=== PATIENT | female | born 1995 | race Caucasian/White ===

== ENCOUNTER → 2016-12-16 | Outpatient (REF) | LOC: ZLAB.WCH 09:07 | DX: Z01.89 Encounter for other specified special examinations (principal) ==

== ENCOUNTER → 2021-07-21 | Outpatient (CLI) | payer BC | LOC: ZCOL.LAB 17:54 | DX: J32.4 Chronic pansinusitis (principal) ==

== ENCOUNTER 2021-08-15 23:13 | Emergency (ER) | payer BC ==
[~2021-08-15] VITALS: Ht 170.2 cm; Wt 111.4 kg
[2021-08-15 23:20] VITALS: TEMP 98.5
[2021-08-16 00:31] LABS: MEAN CELL VOLUME 87 fl (80.0-100.0); MEAN CORPUSCULAR HEMOGLOBIN 29 pg (27-31); MEAN CORPUSCULAR HGB CONC 33 g/dl (33.0-37.0); MEAN PLATELET VOLUME 10.2 fl (7.4-10.4); PLATELET COUNT 83 K/mm3 (130-400); RED BLOOD COUNT 3.47 M/mm3 (4.10-5.30); REDCELL DISTRIBUTION WIDTH-CV 14.9 % (11.5-14.5)
[2021-08-16 00:32] LABS: HEMATOCRIT 30.1 % (37.0-47.0)
[2021-08-16 00:40] LABS: ALBUMIN 3.4 gm/dL (3.5-5.0); BILIRUBIN,TOTAL 0.9 mg/dL (0.2-1.2); CALCIUM 8.7 mg/dL (8.4-10.2); CREATININE, serum 0.89 mg/dL (0.57-1.11); POTASSIUM 3.5 mmol/L (3.5-4.5); TOTAL PROTEIN 6.4 gm/dL (6.2-8.1)
[2021-08-16 00:48] LABS: BAND 10 % (0-10); LYMPHOCYTE 6 % (20.0-51.0); METAMYELOCYTE 1 % (0-0); NEUTROPHILS 76 % (42.0-75.2)
[2021-08-16 00:49] LABS: PLATELET ESTIMATE NORMAL (NORMAL)
[2021-08-16] MEDS ORDERED: BENTYL 20MG20 MG/TAB PO (03:03)
[2021-08-16] MEDS ORDERED: REGLAN 10MG10 MG/TAB PO (03:03)
[2021-08-16 03:18] VITALS: BP 93/64; PULSE 74
== END 2021-08-16 03:18 | disposition home or self-care (01) ==
LOC: COL.ER 23:13
PROVIDERS: Emergency Medicine
DX: K80.50 Calculus of bile duct without cholangitis or cholecystitis without obstruction (principal); D72.819 Decreased white blood cell count, unspecified; Z28.310 Unvaccinated for COVID-19; Z87.19 Personal history of other diseases of the digestive system
CPT/HCPCS: C9113; J2270; J2765; J7120; Q9967

== ENCOUNTER 2021-09-30 12:35 | Day surgery (SDC) | payer BC ==
[2021-09-30] VITALS (7 sets, daily range): BP systolic 101–124; BP diastolic 59–65; PULSE 64–75; TEMP 97.9–98.2
[~2021-09-30] VITALS: Ht 170.2 cm; Wt 109.7 kg
[~2021-09-30 12:35] MED LIST: BENTYL 20MG20 MG/TAB PO; REGLAN 10MG10 MG/TAB PO
[2021-09-30] MEDS ORDERED: KEPPRA 500MG500 MG PO ×2 (12:42→13:33)
[2021-09-30] MEDS ORDERED: DESYREL 50MG50 MG PO ×2 (12:42→13:33)
[2021-09-30] MEDS ORDERED: INDERAL 20MG20 MG PO (12:43)
[2021-09-30] MEDS ORDERED: ZOFRAN ODT4 MG PO (12:44)
[2021-09-30] MEDS ORDERED: FLONASEALLERGY NS (13:28)
[2021-09-30] MEDS ORDERED: PROTONIX 40MG T40 MG PO (13:28)
[2021-09-30] MEDS ORDERED: MASON NATURAL2000 IU PO (13:29)
[2021-09-30] MEDS ORDERED: SYNTHROID0.1 MG/TAB PO (13:30)
[2021-09-30] MEDS ORDERED: PROBIOTIC BLEN1 EACH PO (13:31)
[2021-09-30] MEDS ORDERED: PREDNISONE 5MG5 MG PO (13:31)
[2021-09-30] MEDS ORDERED: LEXAPRO 10MG10 MG PO (13:32)
[2021-09-30] MEDS ORDERED: IMURAN 50MG TAB50 MG PO (13:32)
[2021-09-30] MEDS ORDERED: PLAQUENIL 200M200 MG PO (13:33)
[2021-09-30] MEDS ORDERED: TEMODAR5 MG PO (13:34)
[2021-09-30] MEDS ORDERED: ANIMAL SHAPES1 CT2 PO (13:35)
[2021-09-30] MEDS ORDERED: VITAMIN C500 MG PO (13:35)
[2021-09-30] MEDS ORDERED: ZANAFLEX2 MG PO (13:36)
[2021-09-30] MEDS ORDERED: REGLAN 10MG10 MG/TAB PO (13:36)
[2021-09-30] MEDS ORDERED: BENTYL 20MG20 MG/TAB PO (13:37)
[2021-09-30] MEDS ORDERED: ROXICODONE 55 MG/TAB PO (13:46)
--- NOTE | 2021-09-30 18:13 | NUR ---
1600: Patient arrived back into bay [facility] from PACU. Patient is alert and oriented. Vital signs stable. Report received from Luis A Jackson Patient requesting apple juice and jello. Patient rating pain 3-4/10 to back and epigastric region. Denies nausea. Call light left within reach. 1615: Patient vitally stable. Tolerating food and drink well. Rating pain 5/10 to incisional areas, PRN pain medication given per MAR. 1645: Patient up to restroom with stand by assist. States pain is 1/10 to incisional area. Denies nausea. Patient states she would like to rest. 1730: Patient continues to do well. Denies nausea. Rating pain 1-2/10. 1755: Patient meets discharge criteria. IV removed without complications. Went through discharge instructions with patient and . Patient got dressed. Escorted to emergency department entrance via wheelchair. Patient got into personal vehicle unassisted and left in the care of her .
== END 2021-09-30 18:10 | disposition home or self-care (01) ==
LOC: SDCO 12:35
DX: K80.10 Calculus of gallbladder with chronic cholecystitis without obstruction (principal); C71.9 Malignant neoplasm of brain, unspecified; Z79.52 Long term (current) use of systemic steroids; Z79.899 Other long term (current) drug therapy; Z79.51 Long term (current) use of inhaled steroids; Z28.310 Unvaccinated for COVID-19; Z28.9 Immunization not carried out for unspecified reason
CPT/HCPCS: J0690; J1100; J1170; J1885; J2405; J2704; J3010; J7120

== ENCOUNTER 2021-10-05 13:15 | Inpatient (IN) | payer BC ==
[~2021-10-05] VITALS: Ht 170.2 cm; Wt 109.1 kg
[~2021-10-05 13:15] MED LIST changes: +ANIMAL SHAPES1 CT2 PO; +DESYREL 50MG50 MG PO; +FLONASEALLERGY NS; +IMURAN 50MG TAB50 MG PO; +INDERAL 20MG20 MG PO; +KEPPRA 500MG500 MG PO; +LEXAPRO 10MG10 MG PO; +MASON NATURAL2000 IU PO; +PLAQUENIL 200M200 MG PO; +PREDNISONE 5MG5 MG PO; +PROBIOTIC BLEN1 EACH PO; +PROTONIX 40MG T40 MG PO; +ROXICODONE 55 MG/TAB PO; +SYNTHROID0.1 MG/TAB PO; +TEMODAR5 MG PO; +VITAMIN C500 MG PO; +ZANAFLEX2 MG PO; +ZOFRAN ODT4 MG PO
[2021-10-05 15:02] LABS: BASO % 0.3 % (0.0-2.0); EOS % 0.6 % (0.0-4.0); GRAN # 2.8 K/mm3 (1.4-6.5); GRAN % 85.8 % (42.2-75.2); HEMOGLOBIN 10.3 g/dl (12.5-16.0); LYMPH # 0.1 K/mm3 (1.2-3.4); LYMPH % 3.1 % (20.0-51.0); MEAN CELL VOLUME 87 fl (80.0-100.0); MEAN CORPUSCULAR HEMOGLOBIN 29 pg (27-31); MEAN CORPUSCULAR HGB CONC 33 g/dl (33.0-37.0); MEAN PLATELET VOLUME 10.3 fl (7.4-10.4); MONO # 0.3 K/mm3 (0.1-0.6); PLATELET COUNT 137 K/mm3 (130-400); RED BLOOD COUNT 3.58 M/mm3 (4.10-5.30); REDCELL DISTRIBUTION WIDTH-CV 14.3 % (11.5-14.5)
[2021-10-05 15:08] LABS: HEMATOCRIT 31.3 % (37.0-47.0)
[2021-10-05 15:15] LABS: ALBUMIN 3.6 gm/dL (3.5-5.0); BILIRUBIN,TOTAL 1.5 mg/dL (0.2-1.2); CALCIUM 9.1 mg/dL (8.4-10.2); CREATININE, serum 0.71 mg/dL (0.57-1.11); POTASSIUM 3.6 mmol/L (3.5-4.5); TOTAL PROTEIN 6.7 gm/dL (6.2-8.1)
[2021-10-05 17:51] VITALS: BP 123/67; PULSE 55; TEMP 98.4
[2021-10-05] MEDS ORDERED: ZOFRAN8 MG PO (18:13)
[2021-10-05] MEDS ORDERED: TYLENOL 500MG500 MG PO (18:17)
[2021-10-05] MEDS ORDERED: ALEVE 220MG220 MG PO (18:19)
[2021-10-05] MEDS ORDERED: FLEXERIL5 MG PO (18:20)
[2021-10-05 18:31] VITALS: BP 123/67; PULSE 55; TEMP 98.4
--- NOTE | 2021-10-05 19:08 | NUR ---
PT UP TO FLOOR FROM ER AT 1745. PT STATES THAT SHE IS NOT HAVING ANY ABD PAIN AT THIS TIME. "I WAS EARLIER BUT I FEEL OK NOW." PT STATES THAT SHE IS ON CHEMO BUT HAS NOT HAD IT FOR ABOUT 2 MONTHS NOW. PT STATES THAT SHE WOULD LIKE TO HAVE SOME WATER. ITEMS WERE GIVEN TO PT. PT STATES NO OTHER COCNERNS/NEEDS AT THIS TIME. CALL LIGHT IS WITHIN REACH.
[2021-10-05 19:40] VITALS: BP 129/79; PULSE 41; TEMP 97.8
[2021-10-05 23:51] VITALS: BP 109/66; PULSE 42; TEMP 97.9
[2021-10-06 03:43] VITALS: BP 121/80; PULSE 46; TEMP 97.8
[2021-10-06 06:34] LABS: MEAN CELL VOLUME 90 fl (80.0-100.0); MEAN CORPUSCULAR HGB CONC 32 g/dl (33.0-37.0); MEAN PLATELET VOLUME 10.9 fl (7.4-10.4); PLATELET COUNT 93 K/mm3 (130-400); RED BLOOD COUNT 3.18 M/mm3 (4.10-5.30); REDCELL DISTRIBUTION WIDTH-CV 14.3 % (11.5-14.5)
[2021-10-06 06:52] LABS: HEMATOCRIT 28.5 % (37.0-47.0); HEMOGLOBIN 9.2 g/dl (12.5-16.0); MEAN CORPUSCULAR HEMOGLOBIN 29 pg (27-31)
--- NOTE | 2021-10-06 07:00 | NUR ---
Pt had uneventful night. Some nausea, Zofran given per MAR. Pt's IV in the left hand was painful and swollen at insertion site. Started new IV in the left forearm, 20g. Patient denies any pain from that site. Fluids running. Pt assesment completed. No other concerns. Report given to LORENZA Hung.
[2021-10-06 07:06] VITALS: BP 100/58; PULSE 52; TEMP 98
[2021-10-06 07:17] LABS: ALBUMIN 3.1 gm/dL (3.5-5.0); BILIRUBIN,TOTAL 1.7 mg/dL (0.2-1.2); CALCIUM 8.6 mg/dL (8.4-10.2); CREATININE, serum 0.68 mg/dL (0.57-1.11); TOTAL PROTEIN 5.8 gm/dL (6.2-8.1)
[2021-10-06 07:33] LABS: BAND 4 % (0-10); EOSINOPHIL 2 % (0-4); LYMPHOCYTE 8 % (20.0-51.0); NEUTROPHILS 80 % (42.0-75.2); PLATELET ESTIMATE DECREASED (NORMAL)
[2021-10-06 07:34] LABS: ANISOCYTOSIS 1+; HYPOCHROMIA 1+
--- NOTE | 2021-10-06 10:25 | NUR ---
Initial visit; Patient was receptive to prayer for her ill health. 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
[2021-10-06 11:20] VITALS: BP 115/73; PULSE 66; TEMP 98.1
[2021-10-06 15:27] VITALS: BP 120/78; PULSE 56; TEMP 98.2
[2021-10-06 19:43] VITALS: BP 110/61; PULSE 49; TEMP 97.9
[2021-10-06 23:44] VITALS: BP 117/72; PULSE 64; TEMP 97.9
[2021-10-07 03:53] VITALS: BP 112/62; PULSE 68; TEMP 98.2
[2021-10-07 06:33] LABS: BASO % 0.3 % (0.0-2.0); GRAN # 2.4 K/mm3 (1.4-6.5); GRAN % 80.3 % (42.2-75.2); LYMPH # 0.2 K/mm3 (1.2-3.4); LYMPH % 6.5 % (20.0-51.0); MEAN CELL VOLUME 91 fl (80.0-100.0); MEAN CORPUSCULAR HGB CONC 32 g/dl (33.0-37.0); MONO # 0.3 K/mm3 (0.1-0.6); MONO % 10.5 % (1.7-9.3); PLATELET COUNT 126 K/mm3 (130-400); RED BLOOD COUNT 3.17 M/mm3 (4.10-5.30); REDCELL DISTRIBUTION WIDTH-CV 14.5 % (11.5-14.5)
[2021-10-07 06:41] LABS: HEMATOCRIT 28.9 % (37.0-47.0); HEMOGLOBIN 9.2 g/dl (12.5-16.0); MEAN CORPUSCULAR HEMOGLOBIN 29 pg (27-31)
[2021-10-07 06:52] LABS: ALBUMIN 3.1 gm/dL (3.5-5.0); BILIRUBIN,TOTAL 1.5 mg/dL (0.2-1.2); CALCIUM 8.9 mg/dL (8.4-10.2); CREATININE, serum 0.74 mg/dL (0.57-1.11); POTASSIUM 3.8 mmol/L (3.5-4.5); TOTAL PROTEIN 5.8 gm/dL (6.2-8.1)
--- NOTE | 2021-10-07 07:15 | NUR ---
THIS PATIENT HAD A DIFFICULT NIGHT WITH PAIN AND NAUSEA. THE PATIENT DID RECEIVE TWO DOSES OF DILAUDID BACK TO BACK PER THE MAR PROTOCOL. THE PATIENT IS COMPLAINING OF PAIN DIRECTLY BELOW THE XYPHOID PROCESS. THE ABD CT SCAN DOES SHOW SOME TRACE BILATERAL PLEURAL EFFUSIONS WELL A MASS IN THE LEFT BREAST THAT WAS DISCUSSED WITH ANDRE HOPKINS THIS MORNING. REPORT GIVEN TO LORENZA TREVINO. NO OTHER CONCERNS.
[2021-10-07 08:01] VITALS: BP 117/85; PULSE 58; TEMP 97.8
[2021-10-07 11:20] VITALS: BP 103/51; PULSE 60; TEMP 98.1
--- NOTE | 2021-10-07 13:51 | NUR ---
Cafeteria Monitor met with patient to discuss discharge planning. Patient lives in [place] with her , Zay (ph#[phone]) and their two sons, ages 3 and 1[address] Lagunas for primary care and follows at [facility] for oncology. Patient had surgery for brain cancer in March and has had chemotherapy. Patient states she was just recently cleared to drive again as she could not drive after her brain surgery. Patient is employed by [employer] and is independent with [employer]. Patient does not use any DME. Patient was interested in completing [facility]. Patient chose to designate her , Zay and her mother, Quyen (ph#[phone]). SW provided original and copies to patient then placed copy in patient's chart. Patient plans to return home at time of discharge. Discharge Plan: Home
[2021-10-07 15:34] VITALS: BP 111/61; PULSE 67; TEMP 97.6
[2021-10-07 19:13] VITALS: BP 110/56; PULSE 56; TEMP 97
[2021-10-08 03:46] VITALS: BP 106/59; PULSE 66; TEMP 98.2
[2021-10-08 06:49] LABS: HEMOGLOBIN 10.2 g/dl (12.5-16.0); MEAN CELL VOLUME 90 fl (80.0-100.0); MEAN CORPUSCULAR HEMOGLOBIN 29 pg (27-31); MEAN CORPUSCULAR HGB CONC 32 g/dl (33.0-37.0); MEAN PLATELET VOLUME 11.5 fl (7.4-10.4); PLATELET COUNT 100 K/mm3 (130-400); RED BLOOD COUNT 3.51 M/mm3 (4.10-5.30); REDCELL DISTRIBUTION WIDTH-CV 14.9 % (11.5-14.5)
[2021-10-08 06:52] LABS: CALCIUM 9.1 mg/dL (8.4-10.2); CREATININE, serum 0.79 mg/dL (0.57-1.11); POTASSIUM 3.6 mmol/L (3.5-4.5)
[2021-10-08 07:29] LABS: HEMATOCRIT 31.7 % (37.0-47.0)
[2021-10-08 07:40] LABS: BAND 4 % (0-10); EOSINOPHIL 2 % (0-4); LYMPHOCYTE 10 % (20.0-51.0); METAMYELOCYTE 1 % (0-0); NEUTROPHILS 78 % (42.0-75.2); PLATELET ESTIMATE DECREASED (NORMAL)
[2021-10-08 08:32] VITALS: BP 110/60; PULSE 62; TEMP 98.4
--- NOTE | 2021-10-08 09:27 | NUR ---
PT RESTING IN BED AT THIS TIME. MORNING MEDICATIONS GIVEN. SHIFT ASSESSMENT COMPLETED. PT TOLERATING CLEAR LIQUIDS AFTER NAUSEOUS EPISODE THIS AM. WILL BE NPO AT 1100 FOR EGD THIS AFTERNOON. PT REPORTING EPIGASTRIC PAIN. DENIES ANY NEEDS. WILL CONTINUE TO MONITOR.
[2021-10-08 12:00] VITALS: BP 110/60; PULSE 62; TEMP 98.1
[2021-10-08 15:53] VITALS: BP 109/53; PULSE 59
[2021-10-08 20:39] VITALS: BP 124/64; PULSE 69; TEMP 98.2
--- NOTE | 2021-10-08 22:00 | NUR ---
PT EMILIE IN BED RESTING QUIETLY WATCHING TV. PT REPORTS THAT PAIN IS NOW CONTROLLED WITH MEDICATION.
[2021-10-09] VITALS (7 sets, daily range): BP systolic 93–118; BP diastolic 34–66; PULSE 65–84; TEMP 97.5–99
[2021-10-09 06:23] LABS: HEMOGLOBIN 10.5 g/dl (12.5-16.0); MEAN CELL VOLUME 90 fl (80.0-100.0); MEAN CORPUSCULAR HEMOGLOBIN 29 pg (27-31); MEAN CORPUSCULAR HGB CONC 32 g/dl (33.0-37.0); MEAN PLATELET VOLUME 10.8 fl (7.4-10.4); PLATELET COUNT 165 K/mm3 (130-400); RED BLOOD COUNT 3.66 M/mm3 (4.10-5.30); REDCELL DISTRIBUTION WIDTH-CV 14.6 % (11.5-14.5)
[2021-10-09 06:43] LABS: CALCIUM 9.2 mg/dL (8.4-10.2); CREATININE, serum 0.78 mg/dL (0.57-1.11)
[2021-10-09 06:49] LABS: HEMATOCRIT 33.1 % (37.0-47.0)
[2021-10-09 08:33] LABS: BAND 7 % (0-10); BASOPHIL 1 % (0-2); LYMPHOCYTE 6 % (20.0-51.0); NEUTROPHILS 80 % (42.0-75.2); PLATELET ESTIMATE NORMAL (NORMAL)
--- NOTE | 2021-10-09 09:56 | NUR ---
PT RESTING IN BED. MORNING MEDICATIONS GIVEN. SHIFT ASSESSMENT COMPLETED. PT REPORT PAIN TO BACK THAT RADIATES TO THE CHEST AND EPIGASTRIC AREA, MEDICATION GIVEN PER eMAR. DENIES ANY OTHER NEEDS AT THIS TIME. WILL CONTINUE TO MONITOR.
[2021-10-10 00:21] VITALS: BP 102/63; PULSE 72; TEMP 97.6
[2021-10-10 04:19] VITALS: BP 102/56; PULSE 55; TEMP 98.1
--- NOTE | 2021-10-10 05:40 | NUR ---
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 PT SITTING UP IN BED TALKING TO HER SPOUSE ON THE PHONE. PT HAD SOME MILD EPIGASTRIC PAIN. PT GIVEN SCHEDULED TYLENOL FOR PAIN. PT FELT THE TYLENOL WAS EFFECTIVE. PT DENIED CHEST PAIN, PALPITATIONS, N,V,D, SOB OR DIZZINESS. PT WAS ABLE TO HAVE A COUPLE OF BOWEL MOVEMENTS THIS SHIFT. PT EXPRESSED NO ADDITIONAL NEEDS AT THIS TIME. CALL LIGHT WITHIN REACH.
[2021-10-10 06:58] LABS: HEMOGLOBIN 10.7 g/dl (12.5-16.0); MEAN CELL VOLUME 91 fl (80.0-100.0); MEAN CORPUSCULAR HEMOGLOBIN 29 pg (27-31); MEAN CORPUSCULAR HGB CONC 32 g/dl (33.0-37.0); MEAN PLATELET VOLUME 11.5 fl (7.4-10.4); PLATELET COUNT 160 K/mm3 (130-400); RED BLOOD COUNT 3.75 M/mm3 (4.10-5.30); REDCELL DISTRIBUTION WIDTH-CV 14.5 % (11.5-14.5)
[2021-10-10 07:20] LABS: CALCIUM 9.4 mg/dL (8.4-10.2); CREATININE, serum 0.79 mg/dL (0.57-1.11); POTASSIUM 4.5 mmol/L (3.5-4.5)
--- NOTE | 2021-10-10 07:49 | NUR ---
PT IS ALERT AND ORIENT X4,VSS, DENIES COMLAINTS THIS MORNING.
[2021-10-10 08:00] VITALS: BP 102/50; PULSE 59; TEMP 97.7
[2021-10-10 08:52] LABS: BAND 8 % (0-10); EOSINOPHIL 1 % (0-4); LYMPHOCYTE 9 % (20.0-51.0); NEUTROPHILS 76 % (42.0-75.2)
[2021-10-10 08:54] LABS: MICROCYTOSIS 1+; PLATELET ESTIMATE NORMAL (NORMAL)
[2021-10-10] MEDS ORDERED: TYLENOL 500MG500 MG PO (09:15)
[2021-10-10] MEDS ORDERED: ULTRAM 50MG TAB50 MG PO (09:16)
[2021-10-10] MEDS ORDERED: PROTONIX 40MG T40 MG PO (09:16)
--- NOTE | 2021-10-10 12:10 | NUR ---
PT VSS, ORIENT AND ALERT X4, DENIES ANY COMPLAINTS, DUE MEDICATION GIVEN NO ADVERSE REACTION NOTED. PT DISCHARGED TO GO HOME TODAY, IV REMOVED, TIP INTACT.DISCHARGE SUMMARY PROVIDED. DISCHARGE EDUCATION PROVIDED PT VERBALIZE UNDERSTANDING.ESCORTED OUT OF THE BUILDING BY [facility] TECH.
== END 2021-10-10 11:30 | disposition home or self-care (01) | DRG 392 ==
LOC: COL.ER 13:15 → MEDICAL 16:48
PROVIDERS: Emergency Medicine; Internal Medicine Gastroenterology; Student in an Organized Health Care Education/Training Program; ADMIT Surgery
PROC: 0DB68ZX Excision of Stomach, Via Natural or Artificial Opening Endoscopic, Diagnostic (ICD-10-PCS; 2021-10-08)
PROC: 0DB88ZX Excision of Small Intestine, Via Natural or Artificial Opening Endoscopic, Diagnostic (ICD-10-PCS; 2021-10-08)
PROC: 0DB98ZX Excision of Duodenum, Via Natural or Artificial Opening Endoscopic, Diagnostic (ICD-10-PCS; principal; 2021-10-08 14:30)
DX: R10.13 Epigastric pain (principal); C71.9 Malignant neoplasm of brain, unspecified; J91.8 Pleural effusion in other conditions classified elsewhere; D61.818 Other pancytopenia; E03.9 Hypothyroidism, unspecified; K21.9 Gastro-esophageal reflux disease without esophagitis; F32.A Depression, unspecified; F41.9 Anxiety disorder, unspecified; G89.29 Other chronic pain; M32.9 Systemic lupus erythematosus, unspecified; D70.9 Neutropenia, unspecified; M79.7 Fibromyalgia; K59.00 Constipation, unspecified; Z79.890 Hormone replacement therapy; Z88.2 Allergy status to sulfonamides; Z90.49 Acquired absence of other specified parts of digestive tract; Z79.52 Long term (current) use of systemic steroids; Z23 Encounter for immunization
CPT/HCPCS: C9113; J1170; J1885; J2270; J2405; J2550; J2704; J2765; J3480; J7030; J7120; J7500; J7512; Q9967

== ENCOUNTER 2021-11-29 09:24 | Emergency (ER) | payer BC ==
[~2021-11-29] VITALS: Ht 170.2 cm; Wt 109.1 kg
[~2021-11-29 09:24] MED LIST changes: +ALEVE 220MG220 MG PO; +FLEXERIL5 MG PO; +TYLENOL 500MG500 MG PO; +ULTRAM 50MG TAB50 MG PO; +ZOFRAN8 MG PO
[2021-11-29 09:45] VITALS: TEMP 97.8
[2021-11-29 12:49] LABS: HEMOGLOBIN 11.1 g/dl (12.5-16.0); MEAN CELL VOLUME 89 fl (80.0-100.0); MEAN CORPUSCULAR HEMOGLOBIN 30 pg (27-31); MEAN CORPUSCULAR HGB CONC 34 g/dl (33.0-37.0); MEAN PLATELET VOLUME 9.7 fl (7.4-10.4); PLATELET COUNT 119 K/mm3 (130-400); RED BLOOD COUNT 3.65 M/mm3 (4.10-5.30); REDCELL DISTRIBUTION WIDTH-CV 16.1 % (11.5-14.5)
[2021-11-29 12:50] LABS: HEMATOCRIT 32.6 % (37.0-47.0)
[2021-11-29 13:07] LABS: ALBUMIN 3.8 gm/dL (3.5-5.0); BILIRUBIN,TOTAL 0.4 mg/dL (0.2-1.2); CALCIUM 9.1 mg/dL (8.4-10.2); CREATININE, serum 0.74 mg/dL (0.57-1.11); POTASSIUM 4.6 mmol/L (3.5-4.5); TOTAL PROTEIN 7.3 gm/dL (6.2-8.1)
[2021-11-29 13:16] LABS: ANISOCYTOSIS 1+; LYMPHOCYTE 5 % (20.0-51.0); NEUTROPHILS 92 % (42.0-75.2); PLATELET ESTIMATE DECREASED (NORMAL)
[2021-11-29] MEDS ORDERED: ZITHROMAX Z PA250 MG PO (15:12)
[2021-11-29] MEDS ORDERED: AMOXICILLIN 8751 TAB PO (15:12)
[2021-11-29] MEDS ORDERED: NORCO 325 MG-51 TAB PO (15:13)
[2021-11-29 15:34] VITALS: BP 117/17; PULSE 86
[2021-11-29] MEDS ORDERED: PHENERGAN 25 TA25 MG PO (15:35)
== END 2021-11-29 15:30 | disposition home or self-care (01) ==
LOC: COL.ER 09:24
PROVIDERS: Nurse Practitioner
DX: J18.9 Pneumonia, unspecified organism (principal); Z88.2 Allergy status to sulfonamides; Z28.310 Unvaccinated for COVID-19
CPT/HCPCS: Q9967

== ENCOUNTER → 2022-01-20 | Outpatient (CLI) | payer BC ==
[~2022-01-20] MED LIST changes: +AMOXICILLIN 8751 TAB PO; +NORCO 325 MG-51 TAB PO; +PHENERGAN 25 TA25 MG PO; +ZITHROMAX Z PA250 MG PO
== END ==
LOC: COL.RAD 07:27
DX: C71.9 Malignant neoplasm of brain, unspecified (principal); Z98.890 Other specified postprocedural states
CPT/HCPCS: A9575